=== PATIENT | female | born 2005 | race Caucasian/White ===

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

== ENCOUNTER 2023-06-10 18:14 | Observation (INO) | payer OTHER, SELFPAY ==
[2023-06-10 18:47] VITALS: BP 116/63; PULSE 86
--- NOTE | 2023-06-10 19:07 | PC.NURSE ---
pt presents to L&D with complaints of brown discharge after intercourse. pt denies any cramping or leaking of fluid. denies vaginal bleeding and has positive movement. Dr. Jc notified of pt status and instructed to send pt home.
[2023-06-10 19:09] VITALS: BMI 29.3
--- NOTE | 2023-06-24 21:04 | PM.OBTRLD ---
OB - Triage/Final Diagnosis Visit Information Comments/Additional reasons for admission: I have assessed the risk for this patient, Julia Wilkins, and determined that she would benefit from observation care. She presented with c/o brown discharge after intercourse. She was monitored for an hour. labor ruled out. tracing reassuring and she was discharged to home. Final Diagnosis (1) Vaginal discharge during : Code(s): O26.899 - Other specified related conditions, unspecified trimester; N89.8 - Other specified noninflammatory disorders of vagina Status: Acute
== END 2023-06-10 19:20 | disposition home or self-care (01) ==
PROVIDERS: Admitting Provider Obstetrics & Gynecology; Visit Provider Obstetrics & Gynecology
DX: O26.892 Other specified pregnancy related conditions, second trimester (principal); N89.8 Other specified noninflammatory disorders of vagina; Z3A.24 24 weeks gestation of pregnancy
CPT/HCPCS: G0378; G0379

== ENCOUNTER 2023-08-22 19:20 | Outpatient (CLI) | payer OTHER, SELFPAY ==
[2023-08-22 19:20] VITALS: BMI 33.0
[2023-08-22 20:05] VITALS: BP 132/79; PULSE 92
[2023-08-22 20:06] VITALS: PULSE 87; O2SAT 98
[2023-08-22 20:12] VITALS: BMI 33.0
[2023-08-22 20:33] LABS: Appearance Urine Clear (Clear); Bilirubin Urine Negative (Negative); Blood Urine Negative (Negative); Color Urine Yellow (Yellow); Glucose Urine UA Negative (Negative); Ketones Urine Negative (Negative); Leukocyte Esterase Ur Negative LEU/UL (Negative); Nitrate Urine Negative (Negative); Protein Urine Negative (Negative); Specific Grav Ur 1.015 (1.001-1.035); pH Urine 7.5 (5.0-9.0)
[2023-08-22] MEDS: LACTATED RINGERS 1,000 ML 999 ML IV CONT (20:37)
[2023-08-22 20:49] LABS: Add Urine Microscopic? NO
[2023-08-22 21:23] LABS: Trichomonas Vag PCR NOT DETECTED (NOT DETECTE)
[2023-08-22 21:28] LABS: Chlamydia trachomatis NOT DETECTED (NOT DETECTE); Neisseria gonorrhoeae PCR NOT DETECTED (NOT DETECTE)
[2023-08-22] MEDS: TERBUTALINE SULFATE 1 MG/ML VIAL (22:00)
--- NOTE | 2023-08-22 22:01 | OBPPTRN ---
Patient transferred to post room # via ( ). Support person present. Oriented to unit, room, information board, rooming in, admission packet and security measures. Patient verbalizes understanding.
== END 2023-08-22 22:58 | disposition home or self-care (01) ==
LOC: ANHLDR 22:25 → ANHOBOP 08-23 08:27 → ANHLDR 08-23 08:27
PROVIDERS: Visit Provider Student in an Organized Health Care Education/Training Program
DX: O41.8X90 Other specified disorders of amniotic fluid and membranes, unspecified trimester, not applicable or unspecified (principal)
CPT/HCPCS: 81003; 87491; 87591; 87661; 87808; 96372; 99199; J3105; J7120

== ENCOUNTER 2023-09-01 16:32 | Outpatient (RCR) | payer OTHER, SELFPAY ==
[2023-08-10 20:03] VITALS: BP 115/62; PULSE 87
[2023-09-01 17:58] VITALS: BP 136/77; PULSE 86
== END 2023-11-08 23:59 | disposition home or self-care (01) ==
LOC: ANHOBOP 16:32
PROVIDERS: Visit Provider Obstetrics & Gynecology
DX: O36.8190 Decreased fetal movements, unspecified trimester, not applicable or unspecified (principal); Z3A.33 33 weeks gestation of pregnancy; O26.893 Other specified pregnancy related conditions, third trimester; R10.9 Unspecified abdominal pain; Z3A.36 36 weeks gestation of pregnancy
CPT/HCPCS: 59025

== ENCOUNTER 2023-09-05 16:59 | Observation (INO) | payer OTHER, SELFPAY ==
[2023-09-05 18:30] VITALS: BMI 33.0
[2023-09-05 19:01] VITALS: BP 134/61; PULSE 75
--- NOTE | 2023-09-06 00:59 | OBADM ---
This patient, Julia Wilkins, admitted to the OB room Labor/Delivery/Recovery 106 for observation. Patient/family oriented to hospital policies and general routines including ID bracelet, bed and alarms, visiting hours, pain management, procedures, bathroom and other care routines, personal items, smoking policy, room service/diet, and visiting hours. Patient/Family are encouraged to report perceived risks to care and to ask questions if they do not understand what they are told or what they should do.
--- NOTE | 2023-09-07 08:08 | PM.OBTRLD ---
OB - Triage/Final Diagnosis Visit Information Date of evaluation: 09/06/23 Reason for evaluation: threatened labor Comments/Additional reasons for admission: I have assessed the risk for this patient, Julia Wilkins, and determined that she would benefit from observation care.
== END 2023-09-05 19:30 | disposition home or self-care (01) ==
PROVIDERS: Admitting Provider Student in an Organized Health Care Education/Training Program; Visit Provider Student in an Organized Health Care Education/Training Program
DX: O47.1 False labor at or after 37 completed weeks of gestation (principal); Z3A.37 37 weeks gestation of pregnancy
CPT/HCPCS: G0378; G0379

== ENCOUNTER 2023-09-18 23:10 | Inpatient (IN) | payer OTHER, SELFPAY ==
[2023-09-19] VITALS (242 sets, daily range): BP systolic 79–172; BP diastolic 41–155; PULSE 70–184; TEMP 36.6–37.4; O2SAT 90–100; BMI 35.6
[2023-09-19] MEDS: LACTATED RINGERS 1,000 ML 125 ML IV CONT ×4 (00:30→17:20)
[2023-09-19] MEDS: AMPICILLIN 2 GM/NS 100 ML 2 GM/100 ML BAG IVPB (00:35)
[2023-09-19] MEDS: OXYTOCIN 30 UNITS/NS 500 ML 30 UNITS/500 ML BAG 6 UNITS IV CONT (01:05)
[2023-09-19] MEDS: FAMOTIDINE 20 MG/2 ML VIAL (01:15)
--- NOTE | 2023-09-19 01:16 | LDADM ---
This patient, Julia Wilkins, was admitted to Labor/Delivery/Recovery 105 on 09/18/23 at 23:10. Plans for labor, pain management and were discussed with patient. Patient/family oriented to hospital policies and general routines including ID bracelet, bed and alarms, visiting hours, pain management, procedures, bathroom and other care routines, personal items, smoking policy, room service/diet and guest tray routines, security routines, and visiting hours. Patient/Family are encouraged to report perceived risks to care and to ask questions if they do not understand what they are told or what they should do. See OBIX for further documentation.
[2023-09-19 01:17] LABS: Basophils Percent Auto 0.3 % (0.2-1.2); Eosinophils Absolute Auto 0.1 K/mm3 (0-0.3); Eosinophils Percent Auto 0.5 % (0-4.4); Hematocrit 35.3 % (37.0-47.0); Hemoglobin 11.8 g/dL (12.0-15.0); Immature Granulocyte Absolute 0.04 K/mm3 (0.00-0.031); Immature Granulocyte Percent A 0.3 % (0-0.5); Lymphocytes Absolute Auto 2.14 K/mm3 (0.9-3.2); Lymphocytes Percent Auto 16.7 % (18.3-44.2); Mean Corpuscular HGB Conc 33.4 g/dl (32-36); Mean Corpuscular Hemoglobin 30.3 pg (26-34); Mean Corpuscular Volume 90.5 fl (80-100); Mean Platelet Volume 10.9 fl (7.4-10.4); Monocytes Absolute Auto 0.8 K/mm3 (0.1-0.6); Monocytes Percent Auto 6.4 % (2.6-8.5); Neutrophils Absolute Auto 9.7 K/mm3 (1.3-6.7); Neutrophils Percent Auto 75.8 % (45.5-73.1); Platelet Count Result 214 k/mm3 (150-375); Red Cell Distribution Width 13.1 % (11.5-14.5); White Blood Count 12.8 K/mm3 (4.5-10.0)
[2023-09-19] MEDS: AMPICILLIN 1 GM/NS 50 ML 1 GM/50 ML BAG IVPB ×5 (05:00→21:41)
[2023-09-19] MEDS: fentaNYL CITRATE INJ (*CRX) 100 MCG/2 ML VIAL IV PUSH ×2 (05:45→06:54)
--- NOTE | 2023-09-19 07:14 | WPDANESEPP ---
Anes - Eval Pre Procedure Procedure: labor epidural Date/Time: 09/19/23 07:14 Surgeon: david Preop Diagnosis: pain during labor Pre Op Diagnosis: SROM Patient Data Age: 18 Gender: F Height: 1.65 m Weight: 97 kg Last Vital Signs Temp 36.6 C 09/19/23 03:00 Pulse 81 09/19/23 07:01 BP 138/75 09/19/23 07:01 Pulse Ox 97 09/19/23 06:41 Allergies Allergy/AdvReac Type Severity Reaction Status Date / Time No Known Allergies Allergy Verified 09/16/23 15:38 Home Medications Medication Instructions Recorded Confirmed Type vits no.126-ferrous fum 1 tablet PO DAILY #90 tabs 05/05/23 09/16/23 Rx 28 mg iron-folic acid 800 mcg tablet (Classic ) Laboratory Tests 09/19/23 00:50 WBC 12.8 H K/mm3 (4.5-10.0) RBC 3.90 L M/mm3 (4.2-5.4) Hgb 11.8 L g/dL (12.0-15.0) Hct 35.3 L % (37.0-47.0) MCV 90.5 fl (80-100) MCH 30.3 pg (26-34) MCHC 33.4 g/dl (32-36) RDW 13.1 % (11.5-14.5) Plt Count 214 k/mm3 (150-375) MPV 10.9 H fl (7.4-10.4) Immature Gran % (Auto) 0.3 % (0-0.5) Neut % (Auto) 75.8 H % (45.5-73.1) Lymph % (Auto) 16.7 L % (18.3-44.2) [place] % (Auto) 6.4 % (2.6-8.5) Eos % (Auto) 0.5 % (0-4.4) Baso % (Auto) 0.3 % (0.2-1.2) Lymph # (Auto) 2.14 K/mm3 (0.9-3.2) [place] # (Auto) 0.8 H K/mm3 (0.1-0.6) Eos # (Auto) 0.1 K/mm3 (0-0.3) Baso # (Auto) 0.0 K/mm3 (0.0-0.1) Abs Immat Gran (auto) 0.04 H K/mm3 (0.00-0.031) Absolute Neuts (auto) 9.7 H K/mm3 (1.3-6.7) Absolute Nucleated RBC 0.0 K/mm3 (0.0-0.012) Nucleated RBC % 0.0 % (0.0-0.2) RPR Pending Blood Type B Positive Antibody Screen Negative Patient hx anesthesia problems: none Family hx anesthesia problems: none Results Review: All pre-operative results and documents have been reviewed as part of the pre-operative evaluation. [facility] Past Medical History Medical History (Updated 09/19/23 @ 07:14 by Chary Carrion CRNA) Seizure Suppression of menses Ulcer Vaginal discharge Surgical History Surgical History History of gynecological procedure Nexplanon insertion 2018 Nexplanon removal 12/09/21 Family History Family History Grandparent Diabetes mellitus Social History Social History Social History: Current smoker. Smoking status: Former smoker Tobacco type: e-cigarettes/vaping Second hand tobacco smoke exposure: No Alcohol intake: never Substance use: never Substance use type: marijuana Last use: January 2023 Lack of Transportation: YES Lack of Food: Sometimes True Current Housing: I Do Not Have Housing Concerned About Future Housing: No Difficulty Paying Gas/Electric Bills: No Difficulty Paying for Meds: No Currently Unemployed: No Education: Grade School Difficulty w/ Childcare or Family Care: No Living arrangements: other Additional living arrangements comments: Occupation/Education: unemployed Gender identity (if verbalized by the patient): Female Sexual Orientation (if Verbalized by the Patient): Straight or Heterosexual Spiritual care concerns: No Exam Day of Procedure 09/19/23 07:14
[2023-09-20] VITALS (20 sets, daily range): BP systolic 102–139; BP diastolic 53–115; PULSE 73–104; RESP 16–18; TEMP 36.7–37.2; O2SAT 96–99
[2023-09-20] MEDS: OXYTOCIN 30 UNITS/NS 500 ML 30 UNITS/500 ML BAG 125 UNITS IV CONT (00:02)
--- NOTE | 2023-09-20 00:17 | WPDHPUPDATE1 ---
History and Physical Update Update Date/Time: 09/20/23 00:17 History and Physical has been reviewed, including an updated exam of the patient. There are NO changes in the patient's condition. Risks, benefits, and alternatives have been discussed and questions answered. Patient agrees to proceed with procedure.
--- NOTE | 2023-09-20 00:17 | WPDOBADMIT ---
Obstetrics - Admit Note Admission Note: record reviewed. No pertinent additions to the history and/or any subsequent changes in the physical findings that are not consistent with the expected course of the were found. Additions to the history and/or subsequent changes in the physical findings follow. None.
--- NOTE | 2023-09-20 00:19 | PM.OBPRVD ---
OB - Vaginal Delivery Note Procedure Delivery date: 09/20/23 Events: Other (prolonged rupture of membranes) Induction method: None Delivery augmentation: Pitocin Delivery monitor: External FHT and Internal Uterine Route of delivery: Episiotomy description: None Laceration Description: Perineal - 2nd Degree Delivery repair: chromic Specimen: Yes Quantitative Blood Loss (ml): 300 Anesthesia type: Epidural Disposition: Floor Complications: No immediate complications Narrative: Draped her for this procedure. Maternal expulsive vertex over intact perineum. Rest of baby was delivered without difficulty, cord clamped cut, placenta spontaneously the uterus then well contracted. Second-degree laceration noted approximated using 2-0 chromic to approximate the vaginal tissue, deep tissue and subcuticular layer as well to approximate the perineum. Uterus was well contracted and hemostatic. Due to respiratory difficulty baby was taken to nursery. Baby Weeks of gestation at delivery: 39 Infant gender: Female Weight (pounds): 8 Weight (ounces): 14 presentation: vertex position: Right Occiput Anterior Placenta delivery description: Spontaneous Cord Vessel Description: 3 Vessels score one minute: 4 score five minutes: 8 AMG Delivery Billing Delivery Delivery: Delivery Charge
[2023-09-20] MEDS: LIDOCAINE HCL 1% LOCAL INJ 20 ML VIAL (00:56)
[2023-09-20] MEDS: IBUPROFEN 600 MG TABLET PO ×4 (01:58→21:10)
[2023-09-20] MEDS: HYDROcodone/acetaminophen (*CRX) 5-325 MG TABLET PO ×5 (03:05→21:10)
[2023-09-20] MEDS: DOCUSATE SODIUM 100 MG CAPSULE PO ×2 (07:17→16:01)
[2023-09-20] MEDS: POLYSACCHARIDE IRON COMPLEX 150 MG CAPSULE PO (07:17)
--- NOTE | 2023-09-20 08:25 | WPDANLDPN2 ---
Anes-Prog Note L&D Date/Time: 09/20/23 08:25 Comfortable throughout: labor and delivery Neuraxial method: epidural Epidural/Spinal procedure site: clean & non-tender Neuro status: Neuro function grossly intact. Cardiovascular status: normal Respiratory status: normal Airway patency: baseline Mental status: baseline Post-Op hydration status: normal Vital Signs: Last Vital Signs Temp 37.0 C 09/20/23 03:55 Pulse 80 09/20/23 03:55 Resp 18 09/20/23 03:55 BP 115/64 09/20/23 03:55 Pulse Ox 98 09/20/23 03:55 O2 Del Method Room Air 09/20/23 03:55 Pain score (VAS): 5 I/O: Intake & Output 09/19/23 09/20/23 09/20/23 23:59 07:59 15:59 Intake Total 1100 500 Output Total 450 Balance 1100 50 Post-procedural complaints: none Patient feedback: Patient satisfied with anesthetic care.
[2023-09-20] MEDS: MULTIVIT/MIN/PREN/FOL AC/IRON TABLET 1 TAB PO (08:30)
--- NOTE | 2023-09-20 13:36 | PC.NURSE ---
[id number] Introductions were made, then consulted with patient to assess needs related to . Mother led the conversation with her?plans to feed?her infant and the?experience so far. Discussed the risk, benefits, care and usage of the nipple shield. Breast and infant assessment doesn't demonstrate the need for a nipple shield and mother is eager to practice without it. Encouraged understanding of the benefits of skin to skin (demonstrating unwrapping infant and placing upright on her chest), stimulating with massage touch, changing positions to encourage wakefulness, how to watch for early feeding cues, responsive feeding, feeding on demand (aiming for 8-12 times in 24 hours, about every 2-3 hours), milk production, building/maintaining a milk supply, duration of feeding, signs of adequate intake/output and how to record on the feeding sheet. Mother works well with her infant with encouragement and education. Reviewed positioning and ear, shoulder, hip alignment, supporting the breast to facilitate a deep latch, asymmetrical latch (off-center), leading with the chin with a big, open, wide gape and body close to mother. Infant latched optimally to the right breast in football position without a nipple shield. Education given to the mother of how to visualize the suckling (with good rocking jaw motion), swallows (dropping of the lower jaw) and how to listen for drinking at the breast (the ka sound). Infant was able to maintain latch without pain to mother protecting the nipple with optimal positioning and latching. Reviewed comfort measures of healing with a warm, wet washcloth to rinse breast, then leave open to air-dry, good handwashing when or touching the breast/nipples to prevent infection. Mother voiced understanding of skin to skin, stimulating with massage touch, responsive feedings, hand expressed colostrum, talking to infant to encourage if it has been 2 -2.5 hours since the start of the last , to call if does not latch, or if there is discomfort with . Resources used for education were facilitated with the visual educational handouts, tool, mom and baby guide, Inpatient/outpatient resources provided with feeding sheet, name written on the communication board, and the mom/baby guide. Infant self detached from the breast. Mother was encouraged to place infant [id number] upright on her chest to check for a burp and feeding cues to offer the second breast. [id number] Reviewed positioning and ear, shoulder, hip alignment, supporting the breast to facilitate a deep latch with the sandwich hold, asymmetrical latch (off-center), leading with the chin with a big, open, wide gape and body close to mother. Infant latched optimally to the left breast in football position without a nipple shield. Education given to the mother of how to visualize the suckling (with good rocking jaw motion), swallows (dropping of the lower jaw) and how to listen for drinking at the breast (the ka sound). was able to maintain latch without pain to mother protecting the nipple with optimal positioning and latching. Mother voiced understanding of information, demonstrated learning and will call if there is a request for assistance. Reported to the Primary RN.
[2023-09-20 16:17] LABS: Rapid Plasma Reagin Non-Reactive (NonReactive)
[2023-09-21] MEDS: HYDROcodone/acetaminophen (*CRX) 5-325 MG TABLET PO ×5 (04:37→23:08)
[2023-09-21] MEDS: IBUPROFEN 600 MG TABLET PO ×3 (04:38→23:06)
[2023-09-21 05:00] LABS: Hematocrit 27.8 % (37.0-47.0); Hemoglobin 9.2 g/dL (12.0-15.0)
[2023-09-21 05:15] VITALS: BP 123/64; PULSE 77; RESP 16; O2SAT 99
[2023-09-21 07:52] VITALS: BP 120/72; PULSE 79; RESP 18; TEMP 36.4; O2SAT 97
[2023-09-21] MEDS: DOCUSATE SODIUM 100 MG CAPSULE PO ×2 (08:03→16:19)
[2023-09-21] MEDS: MULTIVIT/MIN/PREN/FOL AC/IRON TABLET 1 TAB PO (08:03)
[2023-09-21] MEDS: POLYSACCHARIDE IRON COMPLEX 150 MG CAPSULE PO ×2 (08:03→16:19)
--- NOTE | 2023-09-21 08:13 | P.DS_ITS ---
DS: Admitting Diagnosis Discharge Date 09/22/2023 Admitting Diagnosis DS: Discharge Diagnosis Discharge Diagnosis (1) , delivered: Code(s): O80 - Encounter for full-term uncomplicated delivery Status: Acute OB - DS: Summary OB Procedures : None OB Procedures Intrapartum: Spontaneous Vag Delivery OB Procedures: : None Peripartum Data Laceration Description: Perineal - 2nd Degree Episiotomy description: None Time Spent with Patient Time attestation: Total time spent providing and/or coordinating discharge services: DS: Data Data Completed and Pending Pending studies at discharge: Pending at discharge 09/20/23 10:50 Surgical [PTH] Routine Labs on day of discharge: Labs from last 24 hours 09/21/23 09/19/23 04:36 00:50 Hgb 9.2 L Hct 27.8 L RPR Non-reactive Discharge Plan Discharge Discharging Clinician: Lew Lopez Patient Disposition: Home, Self-Care Activity: as tolerated Diet: as tolerated Patient Instructions: Antibiotic Form, Electronic [employer] and [employer] (GEN) Stand Alone Forms: General Discharge Information Follow-up/Referrals: Phillip King MD [Physician] - 3 Weeks Discharge Medications: New hydrocodone-acetaminophen 5-325 mg Tablet 1 tablet PO Q4H PRN (Reason: Pain Rated 4-6) Qty: 20 0RF ibuprofen 600 mg Tablet 600 mg PO Q6H PRN (Reason: Cramping) Qty: 30 0RF Continued Classic 28 mg iron- 800 mcg tablet 1 tablet PO DAILY Qty: 90 2RF Date of admission: 09/18/23 23:10 Primary Care Provider: PHYSICIAN,[facility] Admitting Provider: Phillip King Attending physician on admission: Phillip King Condition: Stable
--- NOTE | 2023-09-21 14:59 | PC.NURSE ---
[id number] Consulted with patient to assess needs related to . Discussed with mother her successes, concerns and any questions she has. We reviewed working with the , supporting breast, protecting her nipples with an optimal deep latch, good positioning, and good hand washing. Encouraged understanding the benefits of skin to skin, responding to feeding cues, frequencies of feeding 8-12 times in 24 hours (approximately 2-3 hours), duration of feedings, milk production, intake/output feeding sheet and signs of adequate intake encouraging swallowing at the breast. Reviewed positioning and alignment, supporting breast, off-centered (asymmetrical latch) and leading with the chin with big, open, wide gape. Infant latched optimally to the left and right breast in football and cross cradle position. Education given to the mother of how to visualize the suckling (with good rocking jaw motion) swallows (dropping of the lower jaw), how to listen for drinking at the breast (the ka sound) and how to watch for a shallow latch and non-nutritive suckling. Mother at times would allow the to latch with her baby's body not close to hers. Encouraged supporting the good deep latch to protect the nipple. The infant was able to maintain latch without discomfort to mother with good support. Nipple care reviewed with optimal latch, good positioning and using clean hands when touching her breast. Resources used to facilitate learning were used from the tool, mom and baby guide. Mother voiced understanding of the education shared, to call for assistance if the infant does not latch or if there is discomfort with . Reported to the Primary RN.
--- NOTE | 2023-09-21 15:04 | PC.NURSE ---
[id number] Consulted with patient to assess needs related to . Mother states infant is not latching, was spoon fed, then bottle fed this morning and she initiated pumping last night. Mother voiced understanding to call for assistance today when infant is returned to the room. [id number] We reviewed working with the , supporting breast, protecting her nipples with an optimal deep latch,protecting her milk supply, good positioning, and good hand washing. Mother has understanding of the benefits of skin to skin, responding to feeding cues, frequencies of feeding 8-12 times in 24 hours (approximately 2-3 hours), duration of feedings, milk production, intake/output feeding sheet and signs of adequate intake encouraging swallowing at the breast. Reviewed positioning and alignment, supporting breast, off-centered (asymmetrical latch) and leading with the chin with big, open, wide gape. shows feeding cues but will not latch with big, open, wide gape with tongue down. Infant sucks his tongue, holds the middle to posterior part of his tongue in the middle of his mouth. 's latch demonstration was with the nipple in the front of his mouth seen easily in the corner of his mouth. The nipple shield tool provided no assistance and infant chomped on the nipple shield and sucked on the tip of the shield; however, we discussed readdressing the use of the tool to transition infant from bottle to breast if needed. Discussed with mother the options of feeding the colostrum to her infant along with the risks and benefits of each. Demonstrated paced bottle feeding infant the 13mls of EBM. Resources used to facilitate learning were used from the tool, tongue sucking exercises, mom and baby guide. Maternal mother is supportive at bedside with a good history. Mother voiced understanding of the education shared, to call for assistance if the infant does not latch or if there is discomfort with . Reported to the Primary RN.
--- NOTE | 2023-09-21 16:12 | PCCCNOTE ---
Recvd a CC consult due to lack of transportation/housing, patient living in hotel. Pt. reports anticipates discharge home tomorrow 09/22. Pt. states she and baby will be living with VALENCIA Isaac at [address] , in [place] which is an extended stay hotel per pt. Pt. reports they were evicted from previous residence due to having too many pets. Pt. reports not having these pets now. Pt. states has been in extended stay for a few months. Pt. reports her parents are supportive but she has five younger siblings who still live with them and states they don't have room for pt. and baby. Pt. reports her grandmother lives at [address] [facility] (on pt's chart and pt. receives mail there). Pt. reports having baby supplies and established with [employer]. Pt. reports in process of having WIC benefits. Pt. denies any DCFS involvment but does report having some baby mama drama with VALENCIA Isaac's childrens' mother. Pt. reports is a step mother of 5 yr old and 7 yr old. Resources provided to pt., including , transportation, counseling, and 3 housing resources. RN denies any further concerns. Pt. denies any drug use during . Pt. reports either VALENCIA Isaac, or her parents will be driving her and baby to and from doctor appts. RN aware of visit.
[2023-09-21 20:00] VITALS: BP 103/59; PULSE 79; RESP 18; TEMP 36.4
[2023-09-22 07:30] VITALS: BP 112/54; PULSE 78; RESP 16; TEMP 36.8; O2SAT 99
--- NOTE | 2023-09-22 07:30 | PC.NURSE ---
PT introductions made and plan of care discussed per post , pain management, breast feeding, daily care activities and pending discharge to home. PT and fob both recipients of such care and no barrier to learning identified at this time. PT received such instructions per one to one discussion, mom baby care guide and demonstrations this shift. PT verbalized understanding of such care.
[2023-09-22] MEDS: MULTIVIT/MIN/PREN/FOL AC/IRON TABLET 1 TAB PO (08:31)
[2023-09-22] MEDS: DOCUSATE SODIUM 100 MG CAPSULE PO ×2 (08:31→17:59)
[2023-09-22 08:32] VITALS: PULSE 78; RESP 16; O2SAT 99
[2023-09-22] MEDS: IBUPROFEN 600 MG TABLET PO ×2 (08:32→17:59)
[2023-09-22] MEDS: POLYSACCHARIDE IRON COMPLEX 150 MG CAPSULE PO ×2 (08:32→17:59)
[2023-09-22] MEDS: HYDROcodone/acetaminophen (*CRX) 5-325 MG TABLET PO ×2 (08:33→17:58)
--- NOTE | 2023-09-22 16:42 | PC.NURSE ---
[id number] Purposefully rounded to assess needs. Mother led the conversation of how the feedings have been going while demonstrating effective on the right breast and is demonstrating swallowing with ratios of 1:1, 2:1, and 3:1 suck to swallows. Reminded mother to use good handwashing technique to prevent infection. Mother is feeding appropriately for growth of infant and understands stimulating to eat if needed. has had appropriate feedings in the last 24 hours meets the outcomes for weight, output (waiting on another stool before discharging to home), blood sugar and jaundice at this time. Mother states she is confident to continue effectively her at home, when to call for assistance, denies any additional assistance or education at this time. Reinforced understanding of milk production, transition of milk, signs of adequate intake, transition of stool, prevention/relief of engorgement, plugged ducts, mastitis, responsive watching for feeding cues to feed on demand with no time limit as long as there's no pain and is swallowing (30 min each breast, switching breast for more swallowing), the different methods of stimulating infant to breastfeed 1-3 hours after the start of the last feeding, community resources, and when to call a provider using the resource of the mom and baby guide. Mother voiced understanding of the education shared. Reported to the Primary RN.
--- NOTE | 2023-09-22 18:15 | PC.NURSE ---
Patient viewed the discharge video Mother & Baby Care, The First Two Weeks . Patient was given the opportunity and encouraged to ask questions. Patient verbalized understanding of information shared and has been given the mother/baby guide for home reference.
--- NOTE | 2023-09-22 18:40 | PC.NURSE ---
PT discharged to home ambulatory and walked to waiting car accompanied by fob and infant in car seat. F/U appts confirmed
[2023-09-23 15:11] VITALS: BP 135/66; PULSE 86; RESP 18; TEMP 36.4; O2SAT 99
== END 2023-09-22 18:40 | disposition home or self-care (01) | DRG 807 ==
LOC: ANHLDR 09-19 13:58 → ANHOB2 09-21 08:15 → ANHLDR 09-23 08:43 → ANHOB2 09-23 08:43
PROVIDERS: Admitting Provider Obstetrics & Gynecology; Visit Provider Obstetrics & Gynecology
DX: O42.12 Full-term premature rupture of membranes, onset of labor more than 24 hours following rupture (principal); Z37.0 Single live birth; Z3A.39 39 weeks gestation of pregnancy; O99.824 Streptococcus B carrier state complicating childbirth; O70.1 Second degree perineal laceration during delivery
CPT/HCPCS: 36415; 84112; 85014; 85018; 85025; 86592; 86850; 86900; 86901; 88307; A9270; J0290; J2590; J2795; J3010; J7120

== ENCOUNTER 2023-10-28 07:08 | Emergency (ER) | payer OTHER, SELFPAY ==
[2023-10-28 07:31] VITALS: BP 120/66; PULSE 90; RESP 18; TEMP 36.5; O2SAT 98
[2023-10-28 07:58] LABS: Appearance Urine Clear (Clear); Bacteria Urine None Seen /hpf; Bilirubin Urine Negative (Negative); Blood Urine 3+ (Negative); Color Urine Yellow (Yellow); Glucose Urine UA Negative (Negative); Ketones Urine Negative (Negative); Leukocyte Esterase Ur 1+ LEU/UL (Negative); Nitrate Urine Negative (Negative); Non Pathogenic Casts 0-2; Protein Urine Negative (Negative); RBC Urine >100 /hpf (0-2); Specific Grav Ur 1.019 (1.001-1.035); Squamous Epithelial Cell Urine None seen /hpf (Few); Urobilinogen Urine 0.2 mg/dL (<2.0)
[2023-10-28 08:08] LABS: Add Urine Microscopic? YES
--- NOTE | 2023-10-28 08:10 | ED.FEMALEGU ---
HPI - Female Genitourinary General Chief complaint: Vaginal Bleeding Stated complaint: vaginal bleeding Time Seen by Provider: 10/28/23 07:27 History of Present Illness HPI Narrative: Patient is a 18-year-old female who presents ER with vaginal bleeding. Reports she had sexual intercourse yesterday with her significant other started having some bright red blood at that time. Since then she has had some dark blood come from her vagina. She had a vaginal delivery 1 month ago. She has not yet followed up with her mapper. She has no fevers or chills or sweats. No vaginal discharge. She does have slight dysuria that she thinks is related to a urinary catheter that she had. Patient is not on blood thinning medications. Patient reports during her vaginal delivery she did have a tear that required a couple of sutures. Related Data Allergies Allergy/AdvReac Type Severity Reaction Status Date / Time No Known Allergies Allergy Verified 09/16/23 15:38 Review of Systems Review of Systems: All systems reviewed & are unremarkable except as noted in HPI and below Constitutional: Constitutional: Reports no additional constitutional complaints Gastrointestinal: Gastrointestinal: Reports no additional gastrointestinal complaints Genitourinary: Genitourinary: Reports abnormal vaginal bleeding, Denies nocturia, Reports dysuria, Denies pelvic pain and Denies flank pain PMFSH Past Medical History Medical History (Updated 10/28/23 @ 08:12 by Loi Dawkins MD) Seizure Suppression of menses Ulcer Vaginal discharge Surgical History Surgical History History of gynecological procedure Nexplanon insertion 2018 Nexplanon removal 12/09/21 Family History Family History Grandparent Diabetes mellitus Social History Social History Social History: Current smoker. Smoking status: Former smoker Tobacco type: e-cigarettes/vaping Second hand tobacco smoke exposure: No Alcohol intake: never Substance use: never Substance use type: marijuana Last use: January 2023 Lack of Transportation: YES Lack of Food: Sometimes True Current Housing: I Do Not Have Housing Concerned About Future Housing: No Difficulty Paying Gas/Electric Bills: No Difficulty Paying for Meds: No Currently Unemployed: No Education: Grade School Difficulty w/ Childcare or Family Care: No Living arrangements: other Additional living arrangements comments: Occupation/Education: unemployed Gender identity (if verbalized by the patient): Female Sexual Orientation (if Verbalized by the Patient): Straight or Heterosexual Spiritual care concerns: No Exam Narrative: GENERAL: Well-appearing, well-nourished, and in no acute distress. HEAD: Normocephalic, atraumatic. ENT: Mucous membranes moist. CHEST: Clear to auscultation. No respiratory distress. HEART: Regular rate and rhythm. Normal peripheral pulses. ABDOMEN: Soft, nontender, nondistended. : Normal appearing external genitalia. Small amount of old blood within the vagina. No evidence of active hemorrhage. Unable to visualize sutures. Only is superior aspect of the cervix was identified. No discharge. EXTREMITIES: Normal range of motion. No edema. NEURO: Alert and oriented x3. PSYCH: Normal mood and affect. Course Course Emergency Course: Patient given reassurance. Recommend follow-up with Gynecology and pelvic rest. Vital Signs Vital signs: Vital Signs Temperature 97.7 F 10/28/23 07:31 Pulse Rate 90 10/28/23 07:31 Respiratory Rate 18 10/28/23 07:31 Blood Pressure 120/66 10/28/23 07:31 Pulse Oximetry 98 10/28/23 07:31 Oxygen Delivery Room Air 10/28/23 07:31 Temperature 97.7 F 10/28/23 07:31 Pulse Rate 90 10/28/23 07:31 Respiratory Rate 18 0
[2023-10-28 08:17] VITALS: BP 126/70; PULSE 80; RESP 16; TEMP 36.6; O2SAT 98
== END 2023-10-28 08:19 | disposition home or self-care (01) ==
PROVIDERS: Emergency Provider Emergency Medicine
DX: O72.2 Delayed and secondary postpartum hemorrhage (principal); N93.9 Abnormal uterine and vaginal bleeding, unspecified; Z87.891 Personal history of nicotine dependence; R82.998 Other abnormal findings in urine
CPT/HCPCS: 81001; 87086; 99284